=== PATIENT | male | born 1995 | race Caucasian/White ===

== ENCOUNTER 2018-10-23 10:05 | Emergency (ER) | payer OTHER ==
[~2018-10-23] VITALS: Ht 182.9 cm; Wt 95.3 kg
[2018-10-23] MEDS ORDERED: NAPROSYN500 MG PO (10:52)
[2018-10-23 11:24] VITALS: BP 131/101
== END 2018-10-23 11:10 | disposition home or self-care (01) ==
LOC: ER 10:05
DX: M25.562 Pain in left knee (principal); Z91.013 Allergy to seafood; X50.3XXA Overexertion from repetitive movements, initial encounter; X50.1XXA Overexertion from prolonged static or awkward postures, initial encounter; Y93.31 Activity, mountain climbing, rock climbing and wall climbing; Y92.89 Other specified places as the place of occurrence of the external cause; Y99.8 Other external cause status